=== PATIENT | male | born 1985 | race Caucasian/White ===

== ENCOUNTER 2017-05-16 10:26 | Emergency (ER) | payer SELFPAY ==
[~2017-05-16] VITALS: Ht 170.2 cm; Wt 68.2 kg
[2017-05-16 10:32] VITALS: BP 148/85; PULSE 72; RESP 14; O2SAT 96
--- NOTE | 2017-05-16 10:59 | DRSVH ---
PROCEDURE: X-RAY FINGERS, TWO VIEWS LEFT INDICATIONS: skill saw to left middle finger TECHNIQUE: AP hand, 2 views of the 3rd finger(s) acquired. COMPARISON: None. FINDINGS: Bones: There is a mildly comminuted fracture seen involving the distal tip of the distal phalanx of t he left 3rd finger, with mild adjacent fracture fragments. No additional fractures are detected. No suspicious lytic or blastic lesions are seen. Soft tissues: Soft tissue injury and bandaging material can be seen. IMPRESSION: Comminuted fracture with soft tissue bone fragments involving the distal aspect of the di stal phalanx of the left 3rd finger. Dictated by: Shawn Holly M.D. on 05/16/2017 at 10:56 Approved by: Shawn Holly M.D. on 05/16/2017 at 10:57
--- NOTE | 2017-05-16 11:17 | ED.REPORT ---
HPI-Extremity Problem Upper Date of Service May 16, 2017 ED Provider: Della Guardado History of Present Illness: cut left 3rd finger with skill saw around 1 hour ago, did not happen at work per his report. up to date on tdap. Right hand dominant. no pain at present. Nursing Notes Stated Complaint: CUT MIDDLE FINGER,LEFT HAND Chief Complaint: Extremity Trauma Nursing Notes Reviewed: Yes Allergies: Coded Allergies: No Known Allergies (Unverified , 05/16/17) General Time Seen by MD: 11:10 Chief Complaint Finger injury left 3 Hx Obtained From: Patient Onset Occurred: Just prior to arrival Symptom Duration: Since onset Caused by: Accidental Past Medical History Past Medical History Denies: Asthma, Diabetes mellitus Past Surgical History denies Smoking History Current Every Day Smoker ( pack a day for years) Social History heroin smokes last use this am Alcohol Use: Denies alcohol use Occupation lives by self works at [employer] Ambulatory Status Independent Review of Systems Basic Review of Systems Eyes: Vision NL, No discharge : No dysuria, No frequency Psychiatric: Normal thought content Physical Exam Initial Vital Signs Vital Signs (First) Date Time Temp Pulse Resp B/P Pulse Ox O2 Delivery O2 Flow Rate FiO2 05/16/17 10:32 36.8 72 14 148/85 96 05/16/17 12:54 Room Air Initial VS: Reviewed, Vital signs normal General/Constitutional: Well-developed, Well-nourished Head / Eyes: Atraumatic, Normocephalic, PERRL ENT: Mucous membranes moist, Conjunctiva normal, No scleral icterus Neck: Supple, Non-tender, Full range of motion Respiratory: Breath sounds normal, Clear to auscultation, No respiratory distress Cardiovascular: Regular rate & rhythm, Heart sounds normal, Intact distal pulses Abdomen / GI: Soft, Non-tender, No guarding, No rebound, No distention Back: No CVA tenderness Lymphatic: No lymphadenopathy Lower Extremities: Vascular intact, Neuro intact, No swelling, No tenderness Skin: Warm, Dry, No cyanosis Neurologic: Alert, Oriented, Nonfocal Psychiatric: Mood/affect normal, Behavior normal, Normal thought content General/Constitutional: Awake, Alert, No acute distress, Well appearing, Well developed, Well hydrated Respiratory / Chest: Atraumatic, Breath sounds NL, Breath sounds = bilat Cardiovascular: Heart rate NL, Regular rhythm, Heart sounds NL, No gallop Upper Extremity / MS: Atraumatic, Inspection NL, Full range of motion, No swelling left 3rd finger tip has laceration thru nail bed and on finger pad. Range of motion intact. Interpretation & Diagnostics X-Ray Interpretation Xray Interpretation: PROCEDURE: X-RAY FINGERS, TWO VIEWS LEFT INDICATIONS: skill saw to left middle finger TECHNIQUE: AP hand, 2 views of the 3rd finger(s) acquired. COMPARISON: None. FINDINGS: Bones: There is a mildly comminuted fracture seen involving the distal tip of the distal phalanx of the left 3rd finger, with mild adjacent fracture fragments. No additional fractures are detected. No suspicious lytic or blastic lesions are seen. Soft tissues: Soft tissue injury and bandaging material can be seen. IMPRESSION: Comminuted fracture with soft tissue bone fragments involving the distal aspect of the distal phalanx of the left 3rd finger. Dictated by: Shawn Holly M.D. on 05/16/2017 at 10:56 Approved by: Shawn Holly M.D. on 05/16/2017 at 10:57 Procedures Laceration Management Time: 11:45 Procedure Performed by: Allied health pract Consent / Setup / Site Prep: Informed consent provided, Consent from patient , Hand hygiene observed, Stand sterile technique Location of Wound: left 3rd finger tip Wound Length: 3 cm Local Anesthesia: Lidocaine 1%, 5cc, 27g needle Digital Block: Yes Digit Involved: Middle finger left Wound Preparation: Normal saline Debridement: Minimal (small piece of nail was removed) Irrigation: Copious Repair Skin: ___ O (5.0), Nylon # Sutures - Skin: 10 Closure Layers: 1 Suture Technique: Simple Post-Procedure / Complications: Antibiotic oint applied, Dressing applied, No complications, Condition improved, Tolerated procedure well, Patient stable Re-Eval/Medical Decision Med Decision/Clinical Course 31 year old male with laceration to the left 3rd finger tip. Occured this am, patient states it did not happen at work. Range of motion is intact. Discussed with Dr. Otoole, per Dr. Otoole, patient is to follow up with Dr. Sandhu next week. Patient informed of this. Ex-ray shows tuft fracture. No sign of compartment syndrome. Discharge & Departure Impression: Primary Impression: Finger laceration Encounter type: initial encounter Qualified Code: S61.219A - Laceration without foreign body of unspecified finger without damage to nail, initial encounter Additional Impression: Open fracture of tuft of distal phalanx of finger Encounter type: initial encounter Qualified Code: S62.639B - Displaced fracture of distal phalanx of unspecified finger, initial encounter for open fracture Disposition: Home Patient Instructions: Finger Fracture (ED), Splint Care (ED) Additional Instructions: The x-ray shows a small tuft fracture, the very tip of the bone was cut by the saw. Need to keep the site dry. You received an injection of antibiotics in the ER. Continue with keflex 500 mg 3 times a day for 10 days. No work the rest of this wee. When you return, you need to keep the dressing dry. Use a cotton glove under the water proof one. Please call Dr. Sandhu for follow up next week. Call today to schedule an appointment for next week. The finger was repaired with 10 sutures. You can use hydrocodone 1 at night as needed for severe unrelenting pain. Use with CAUTION!!! Note for work provided. Referrals: Eugene Sandhu DO EDSupervising Provider for APC: Tani Sosa MD copies to: Eugene Sandhu Sue ARNP May 16, 2017 11:17
[2017-05-16] MEDS ORDERED: cefTRIAXone Inj 1,000 MG, Lidocaine PF 1% Inj 2.1 ML in Syringe 0 EACH IM ONE (11:30)
[2017-05-16 12:54] VITALS: BP 124/72; PULSE 54; RESP 17; O2SAT 94
== END 2017-05-16 12:56 | disposition home or self-care (01) ==
LOC: SED 10:26
DX: S62.631B Displaced fracture of distal phalanx of left index finger, initial encounter for open fracture (principal); S61.213A Laceration without foreign body of left middle finger without damage to nail, initial encounter; W27.0XXA Contact with workbench tool, initial encounter; Y93.89 Activity, other specified; Y92.89 Other specified places as the place of occurrence of the external cause; Y99.8 Other external cause status; F17.200 Nicotine dependence, unspecified, uncomplicated
CPT/HCPCS: 12002; 73140; 96372; 99284; J0696